=== PATIENT | male | born 1955 | race Caucasian/White ===

== ENCOUNTER → 2022-06-15 14:34 | Outpatient (CLI) | payer MEDICARE, SELFPAY ==
--- NOTE | 2022-06-15 14:39 | DI.US.S_ITS ---
PROCEDURE: US SOFT TISSUE HEAD AND NECK INDICATIONS: Subcutaneous mass lower neck TECHNIQUE: Real-time scanning was performed of the neck region of interest, with image documentation. COMPARISON: None. FINDINGS: At the area of the palpable abnormality in the right posterior neck, there is a 3.2 x 1.9 x 3.0 cm circumscribed heterogeneously hypoechoic lesion with minimal vascularity. IMPRESSION: Circumscribed 3.2 cm lesion in the subcutaneous tissues at the right posterior neck corresponds to the palpable abnormality. Differential considerations include sebaceous cyst, lymph node, or other benign or malignant soft tissue mass. Dictated by: Telly Jose M.D. on 06/16/2022 at 8:21 Approved by: Telly Jose M.D. on 06/16/2022 at 8:23
== END ==
PROVIDERS: Referring Provider Internal Medicine; Visit Provider Internal Medicine
DX: R22.1 Localized swelling, mass and lump, neck (principal)
CPT/HCPCS: 76536